=== PATIENT | female | born 1970 | race Caucasian/White ===

== ENCOUNTER 2020-09-21 06:04 | Day surgery (SDC) | payer OTHER ==
[2020-09-18 19:21] VITALS: BMI 41.3
[2020-09-21] MEDS ORDERED: oxyCODONE HCL 5 MG TABLET PO PRN (08:51)
[2020-09-21] MEDS ORDERED: PROPOFOL 20 ML ONE (08:51)
[2020-09-21] MEDS ORDERED: ACETAMINOPHEN 325 MG TABLET (FP) PO PRN (08:51)
[2020-09-21] MEDS ORDERED: MIDAZOLAM HCL 2 MG/2 ML SINGLE DOSE VIAL ONE ×2 (08:52)
[2020-09-21] MEDS ORDERED: BUPIVACAINE HCL/EPINEPHRINE/PF 30 ML VIAL IJ ONE (09:13)
[2020-09-21] MEDS ORDERED: LACTATED RINGERS SOLUTION 1,000 ML IV SCH (10:45)
[2020-09-21] MEDS ORDERED: ONDANSETRON 4 MG/2 ML VIAL IVPUSH PRN (10:45)
[2020-09-21 12:42] VITALS: BP 121/64; PULSE 71; TEMP 97.8
== END 2020-09-21 12:50 | disposition home or self-care (01) ==
LOC: FASU 06:04
PROVIDERS: ATTEND Orthopaedic Surgery
PROC: 0SQD4ZZ Repair Left Knee Joint, Percutaneous Endoscopic Approach (ICD-10-PCS; 2020-09-21)
PROC: 0SBD4ZZ Excision of Left Knee Joint, Percutaneous Endoscopic Approach (ICD-10-PCS; principal; 2020-09-21 09:48)
PROC: 0SBD4ZZ Excision of Left Knee Joint, Percutaneous Endoscopic Approach (ICD-10-PCS; 2020-09-21 09:48)
DX: S83.242A Other tear of medial meniscus, current injury, left knee, initial encounter (principal); S83.282A Other tear of lateral meniscus, current injury, left knee, initial encounter; M94.262 Chondromalacia, left knee; M65.9 Synovitis and tenosynovitis, unspecified; X58.XXXA Exposure to other specified factors, initial encounter; Y93.9 Activity, unspecified; Y92.9 Unspecified place or not applicable
CPT/HCPCS: 29880; G0289; 88304-TC; 94760

== ENCOUNTER 2021-04-15 05:59 | Day surgery (SDC) | payer OTHER ==
[2021-04-10 15:34] VITALS: BMI 40.5
[2021-04-15] MEDS ORDERED: BUPIVACAINE HCL/PF 0.25% (2.5MG/ML) 10 ML VIAL ONE (07:17)
[2021-04-15] MEDS ORDERED: ACETAMINOPHEN 325 MG TABLET (FP) PO PRN (07:27)
[2021-04-15] MEDS ORDERED: ACETAMINOPHEN 325 MG TABLET (FP) PO ONE (08:41)
[2021-04-15] MEDS ORDERED: oxyCODONE HCL 5 MG TABLET PO PRN (08:41)
[2021-04-15] MEDS ORDERED: ONDANSETRON 4 MG/2 ML VIAL IVPUSH PRN (08:41)
[2021-04-15] MEDS ORDERED: LACTATED RINGERS SOLUTION 1,000 ML IV SCH (08:45)
[2021-04-15 09:34] VITALS: TEMP 97.8
[2021-04-15 10:16] VITALS: BP 130/75; PULSE 85
== END 2021-04-15 10:10 | disposition home or self-care (01) ==
LOC: FASU 05:59
PROVIDERS: ATTEND Orthopaedic Surgery
PROC: XK02303 Introduction of Concentrated Bone Marrow Aspirate into Muscle, Percutaneous Approach, New Technology Group 3 (ICD-10-PCS; 2021-04-15)
PROC: 0LN43ZZ Release Left Upper Arm Tendon, Percutaneous Approach (ICD-10-PCS; principal; 2021-04-15 08:06)
DX: M77.12 Lateral epicondylitis, left elbow (principal)
CPT/HCPCS: 0232T; 24357; 94760

== ENCOUNTER 2022-01-17 09:24 | Day surgery (SDC) | payer BC, OTHER ==
[2022-01-14 16:57] VITALS: BMI 41.0
[2022-01-17] MEDS ORDERED: PROPOFOL 20 ML ONE ×2 (11:31→13:08)
[2022-01-17] MEDS ORDERED: KETAMINE HCL 200 MG/20 ML VIAL ONE (11:31)
[2022-01-17] MEDS ORDERED: KETOROLAC TROMETHAMINE 30 MG/1 ML VIAL ONE (11:32)
[2022-01-17] MEDS ORDERED: DEXAMETHASONE SOD PHOSPHATE 4 MG/1 ML VIAL ONE (11:32)
[2022-01-17] MEDS ORDERED: ONDANSETRON 4 MG/2 ML VIAL ONE (11:32)
[2022-01-17] MEDS ORDERED: MIDAZOLAM HCL 2 MG/2 ML SINGLE DOSE VIAL ONE (12:03)
[2022-01-17] MEDS ORDERED: ACETAMINOPHEN 325 MG TABLET (FP) PO PRN (12:28)
[2022-01-17] MEDS ORDERED: IBUPROFEN 400 MG TABLET (FP) PO PRN (12:28)
[2022-01-17] MEDS ORDERED: LIDOCAINE HCL 1%, 10 MG/ML (20ML VIAL) ONE (12:52)
[2022-01-17] MEDS ORDERED: ceFAZolin SODIUM 1 GM VIAL ONE (13:00)
[2022-01-17] MEDS ORDERED: LACTATED RINGERS SOLUTION 1,000 ML IV SCH (13:30)
[2022-01-17] MEDS ORDERED: oxyCODONE HCL 5 MG TABLET PO PRN (13:30)
[2022-01-17 13:48] VITALS: TEMP 97.4
[2022-01-17 14:20] VITALS: RESP 19
[2022-01-17 14:41] VITALS: BP 121/80; PULSE 75
== END 2022-01-17 14:41 | disposition home or self-care (01) ==
LOC: FASU 09:24
PROVIDERS: ATTEND Orthopaedic Surgery
PROC: 0LN33ZZ Release Right Upper Arm Tendon, Percutaneous Approach (ICD-10-PCS; principal; 2022-01-17 13:04)
DX: M77.11 Lateral epicondylitis, right elbow (principal)
CPT/HCPCS: 0232T; 24357; 82962; 94760

== ENCOUNTER 2022-04-18 07:22 | Day surgery (SDC) | payer BC, OTHER ==
[2022-04-15 14:28] VITALS: BMI 24.7
[~2022-04-18 07:22] MED LIST: BUPIVACAINE HCL/PF 0.25% (2.5MG/ML) 10 ML VIAL IJ ONE
[2022-04-18 08:47] VITALS: RESP 18
[2022-04-18] MEDS ORDERED: LIDOCAINE HCL/PF 2% SDV 5ML VIAL ONE (09:26)
[2022-04-18] MEDS ORDERED: DEXAMETHASONE SOD PHOSPHATE 4 MG/1 ML VIAL ONE (09:26)
[2022-04-18] MEDS ORDERED: MIDAZOLAM HCL 2 MG/2 ML SINGLE DOSE VIAL ONE (09:26)
[2022-04-18] MEDS ORDERED: PROPOFOL 20 ML ONE (09:26)
[2022-04-18] MEDS ORDERED: ONDANSETRON 4 MG/2 ML VIAL ONE (09:26)
[2022-04-18] MEDS ORDERED: ceFAZolin SODIUM 1 GM VIAL ONE (09:26)
[2022-04-18] MEDS ORDERED: oxyCODONE HCL 5 MG TABLET PO PRN ×2 (09:54)
[2022-04-18] MEDS ORDERED: ONDANSETRON 4 MG/2 ML VIAL IVPUSH PRN (09:54)
[2022-04-18] MEDS ORDERED: LACTATED RINGERS SOLUTION 1,000 ML IV SCH (10:00)
[2022-04-18] MEDS ORDERED: BUPIVACAINE HCL/EPINEPHRINE/PF 30 ML VIAL IJ ONE (10:24)
[2022-04-18] MEDS ORDERED: BUPIVACAINE HCL/PF 0.25% (2.5MG/ML) 10 ML VIAL ONE (10:24)
[2022-04-18] MEDS ORDERED: BUPIVACAINE 0.25% /EPI 1:200,000 10 ML VIAL NR ONE (11:50)
[2022-04-18] MEDS ORDERED: KETOROLAC TROMETHAMINE 30 MG/1 ML VIAL ONE (12:13)
[2022-04-18] MEDS ORDERED: BUPIVACAINE HCL/PF 0.25% (2.5MG/ML) 10 ML VIAL IJ ONE (12:14)
[2022-04-18] MEDS ORDERED: ACETAMINOPHEN 1000 MG/100 ML BAG IVPB ONE (12:40)
[2022-04-18 13:28] VITALS: PULSE 74; TEMP 98.1
[2022-04-18 14:05] VITALS: BP 131/71
== END 2022-04-18 14:00 | disposition home or self-care (01) ==
LOC: FASU 07:22
PROVIDERS: ATTEND Orthopaedic Surgery
PROC: 0SQC4ZZ Repair Right Knee Joint, Percutaneous Endoscopic Approach (ICD-10-PCS; 2022-04-18)
PROC: 0SBC4ZZ Excision of Right Knee Joint, Percutaneous Endoscopic Approach (ICD-10-PCS; principal; 2022-04-18 11:50)
DX: S83.241A Other tear of medial meniscus, current injury, right knee, initial encounter (principal); S83.281A Other tear of lateral meniscus, current injury, right knee, initial encounter; M65.861 Other synovitis and tenosynovitis, right lower leg; M94.261 Chondromalacia, right knee; X58.XXXA Exposure to other specified factors, initial encounter; Y92.9 Unspecified place or not applicable; Y93.9 Activity, unspecified
CPT/HCPCS: 94760